=== PATIENT | male | born 1950 | race Two or more races ===

== ENCOUNTER 2018-05-16 08:33 | Outpatient (CLI) | payer OTHER | END 2018-05-16 08:40 | disposition home or self-care (01) | LOC: LAB 08:33 | DX: E11.65 Type 2 diabetes mellitus with hyperglycemia (principal); N40.0 Benign prostatic hyperplasia without lower urinary tract symptoms; E03.8 Other specified hypothyroidism; E55.9 Vitamin D deficiency, unspecified; E78.2 Mixed hyperlipidemia; N39.0 Urinary tract infection, site not specified; J45.998 Other asthma ==

== ENCOUNTER 2018-05-18 07:59 | Outpatient (CLI) | payer OTHER | END 2018-05-18 08:07 | disposition home or self-care (01) | LOC: LAB 07:59 | DX: E11.65 Type 2 diabetes mellitus with hyperglycemia (principal); N40.0 Benign prostatic hyperplasia without lower urinary tract symptoms; E03.8 Other specified hypothyroidism; E55.9 Vitamin D deficiency, unspecified; E78.2 Mixed hyperlipidemia; N39.0 Urinary tract infection, site not specified; J45.998 Other asthma ==

== ENCOUNTER 2018-05-26 13:14 | Outpatient (CLI) | payer OTHER | END 2018-05-26 13:43 | disposition home or self-care (01) | LOC: SONOGRAMA 13:14 | DX: E03.8 Other specified hypothyroidism (principal); E07.89 Other specified disorders of thyroid ==

== ENCOUNTER 2018-06-03 09:45 | Outpatient (CLI) | payer OTHER | END 2018-06-03 10:06 | disposition home or self-care (01) | LOC: NUCLEAR 09:45 | DX: M81.0 Age-related osteoporosis without current pathological fracture (principal) ==

== ENCOUNTER → 2019-03-09 08:19 | Outpatient (CLI) | payer OTHER | END | disposition home or self-care (01) | LOC: LAB 08:19 | DX: E11.21 Type 2 diabetes mellitus with diabetic nephropathy (principal); E03.8 Other specified hypothyroidism; D68.8 Other specified coagulation defects; D64.89 Other specified anemias; N39.0 Urinary tract infection, site not specified; E55.9 Vitamin D deficiency, unspecified; E11.65 Type 2 diabetes mellitus with hyperglycemia; N40.0 Benign prostatic hyperplasia without lower urinary tract symptoms; E78.2 Mixed hyperlipidemia ==

== ENCOUNTER 2019-03-11 10:24 | Outpatient (CLI) | payer OTHER | END 2019-03-11 10:30 | disposition home or self-care (01) | LOC: LAB 10:24 | DX: E11.21 Type 2 diabetes mellitus with diabetic nephropathy (principal) ==

== ENCOUNTER 2019-07-04 08:10 | Outpatient (CLI) | payer OTHER | END 2019-07-04 08:14 | disposition home or self-care (01) | LOC: SONOGRAMA 08:10 | DX: N40.1 Benign prostatic hyperplasia with lower urinary tract symptoms (principal); N40.2 Nodular prostate without lower urinary tract symptoms; R33.8 Other retention of urine ==

== ENCOUNTER → 2021-04-30 08:40 | Outpatient (CLI) | payer OTHER | END | disposition home or self-care (01) | LOC: LAB 08:40 | PROVIDERS: ATTEND Specialist | DX: E78.2 Mixed hyperlipidemia (principal); D64.89 Other specified anemias; N39.0 Urinary tract infection, site not specified; N40.1 Benign prostatic hyperplasia with lower urinary tract symptoms; E11.69 Type 2 diabetes mellitus with other specified complication; E03.8 Other specified hypothyroidism ==

== ENCOUNTER 2021-05-09 14:40 | Outpatient (CLI) | payer OTHER | END 2021-05-09 14:50 | disposition home or self-care (01) | LOC: SONOGRAMA 14:40 | PROVIDERS: ATTEND Specialist | DX: N20.0 Calculus of kidney (principal) ==

== ENCOUNTER 2021-05-12 07:46 | Outpatient (CLI) | payer OTHER | END 2021-05-12 07:47 | disposition home or self-care (01) | LOC: LAB 07:46 | PROVIDERS: ATTEND Specialist | DX: D64.89 Other specified anemias (principal); Z12.11 Encounter for screening for malignant neoplasm of colon; D68.8 Other specified coagulation defects; D50.8 Other iron deficiency anemias ==

== ENCOUNTER 2021-05-19 16:21 | Outpatient (CLI) | payer OTHER | END 2021-05-19 16:28 | disposition home or self-care (01) | LOC: RAD 16:21 | PROVIDERS: ATTEND Specialist | DX: M51.37 Other intervertebral disc degeneration, lumbosacral region (principal); M54.16 Radiculopathy, lumbar region ==

== ENCOUNTER 2021-05-19 17:32 | Outpatient (CLI) | payer OTHER | END 2021-05-19 17:36 | disposition home or self-care (01) | LOC: LAB 17:32 | PROVIDERS: ATTEND Specialist | DX: D64.89 Other specified anemias (principal); D68.8 Other specified coagulation defects; E55.9 Vitamin D deficiency, unspecified; D51.0 Vitamin B12 deficiency anemia due to intrinsic factor deficiency ==

== ENCOUNTER 2021-05-28 13:43 | Outpatient (CLI) | payer OTHER | END 2021-05-28 13:44 | disposition home or self-care (01) | LOC: NUCLEAR 13:43 | PROVIDERS: ATTEND Specialist | DX: M81.0 Age-related osteoporosis without current pathological fracture (principal) ==

== ENCOUNTER 2022-05-12 11:42 | Outpatient (CLI) | payer OTHER | END 2022-05-12 11:43 | disposition home or self-care (01) | LOC: LAB 11:42 | PROVIDERS: ATTEND Specialist | DX: E03.9 Hypothyroidism, unspecified (principal); E11.65 Type 2 diabetes mellitus with hyperglycemia; E11.21 Type 2 diabetes mellitus with diabetic nephropathy ==

== ENCOUNTER 2022-05-25 11:01 | Outpatient (CLI) | payer OTHER | END 2022-05-25 11:18 | disposition home or self-care (01) | LOC: LAB 11:01 | PROVIDERS: ATTEND Specialist | DX: E11.21 Type 2 diabetes mellitus with diabetic nephropathy (principal); N39.9 Disorder of urinary system, unspecified; N40.1 Benign prostatic hyperplasia with lower urinary tract symptoms; D40.0 Neoplasm of uncertain behavior of prostate; E78.2 Mixed hyperlipidemia; D64.9 Anemia, unspecified; E11.65 Type 2 diabetes mellitus with hyperglycemia; K75.81 Nonalcoholic steatohepatitis (NASH); N39.0 Urinary tract infection, site not specified; Z12.11 Encounter for screening for malignant neoplasm of colon; J45.998 Other asthma ==

== ENCOUNTER 2022-06-17 10:52 | Outpatient (CLI) | payer OTHER | END 2022-06-17 11:01 | disposition home or self-care (01) | LOC: LAB 10:52 | PROVIDERS: ATTEND Specialist | DX: B15.0 Hepatitis A with hepatic coma (principal); B19.10 Unspecified viral hepatitis B without hepatic coma; B17.10 Acute hepatitis C without hepatic coma ==

== ENCOUNTER 2023-04-19 10:08 | Outpatient (CLI) | payer OTHER | END 2023-04-19 10:10 | disposition home or self-care (01) | LOC: LAB 10:08 | PROVIDERS: ATTEND Specialist | DX: E03.9 Hypothyroidism, unspecified (principal); N40.1 Benign prostatic hyperplasia with lower urinary tract symptoms; D64.9 Anemia, unspecified; E11.65 Type 2 diabetes mellitus with hyperglycemia; D51.0 Vitamin B12 deficiency anemia due to intrinsic factor deficiency; K75.81 Nonalcoholic steatohepatitis (NASH) ==

== ENCOUNTER 2023-05-14 09:47 | Outpatient (CLI) | payer OTHER | END 2023-05-14 09:51 | disposition home or self-care (01) | LOC: LAB 09:47 | PROVIDERS: ATTEND Specialist | DX: E03.8 Other specified hypothyroidism (principal); Z13.220 Encounter for screening for lipoid disorders; D64.89 Other specified anemias; E11.21 Type 2 diabetes mellitus with diabetic nephropathy; Z12.5 Encounter for screening for malignant neoplasm of prostate; M00.80 Arthritis due to other bacteria, unspecified joint; N25.81 Secondary hyperparathyroidism of renal origin; R19.5 Other fecal abnormalities; E11.69 Type 2 diabetes mellitus with other specified complication; N39.9 Disorder of urinary system, unspecified ==

== ENCOUNTER 2023-05-25 09:56 | Outpatient (CLI) | payer OTHER | END 2023-05-25 09:57 | disposition home or self-care (01) | LOC: LAB 09:56 | PROVIDERS: ATTEND Internal Medicine Hematology & Oncology | DX: D50.8 Other iron deficiency anemias (principal); D59.2 Drug-induced nonautoimmune hemolytic anemia; D89.2 Hypergammaglobulinemia, unspecified; C25.0 Malignant neoplasm of head of pancreas; C18.0 Malignant neoplasm of cecum; D57.3 Sickle-cell trait ==

== ENCOUNTER 2023-07-16 09:29 | Outpatient (CLI) | payer OTHER ==
[2023-07-16 10:16] LABS: HEMATOCRIT 38.4 % (39.0-48.0); HEMOGLOBIN 12.6 g/dL (13-16.00); MEAN CELL VOLUME 95.7 fL (80.0-100.00); MEAN CORPUSCULAR HEMOGLOBIN 31.4 pg (27.00-32.0); MEAN CORPUSCULAR HGB CONC 32.9 g/dl (32.0-36.0); PLATELET COUNT 221 K/uL (150-450); RED BLOOD COUNT 4.01 M/uL (4.00-6.00); RED CELL DISTRIBUTION WIDTH 14.2 % (11.5-14.5)
== END 2023-07-16 09:30 | disposition home or self-care (01) ==
LOC: LAB 09:29
PROVIDERS: ATTEND Internal Medicine Hematology & Oncology
DX: D64.9 Anemia, unspecified (principal)

== ENCOUNTER 2024-04-17 10:35 | Outpatient (CLI) | payer OTHER ==
[2024-04-17 11:41] LABS: URINE APPEARANCE Clear; URINE BILIRRUBIN Negative (NEGATIVE); URINE BLOOD Negative; URINE COLOR Yellow; URINE GLUCOSE Negative (NEGATIVE); URINE LEUKOCYTE Negative; URINE NITRATE Negative; URINE PROTEIN Negative (NEGATIVE); URINE UROBILINOGEN 0.2 E.U./dl
[2024-04-17 11:45] LABS: URINE RBC 7.4 uL (0.0-20.8)
[2024-04-17 11:49] LABS: HEMATOCRIT 37.2 % (39.0-48.0); HEMOGLOBIN 12.9 g/dL (13-16.00); MEAN CELL VOLUME 94.9 fL (80.0-100.00); MEAN CORPUSCULAR HEMOGLOBIN 32.8 pg (27.00-32.0); MEAN CORPUSCULAR HGB CONC 34.6 g/dl (32.0-36.0); PLATELET COUNT 231 K/uL (150-450); RED BLOOD COUNT 3.92 M/uL (4.00-6.00); RED CELL DISTRIBUTION WIDTH 14.5 % (11.5-14.5)
[2024-04-17 11:49] LABS: URINE BACTERIA 1.2 uL (0.0-1933); URINE EPITHELIAL CELLS 0.9 uL (0.0-38.8)
[2024-04-17 12:49] LABS: ALBUMIN 3.9 gm/dL (3.4-5.0); BILIRUBIN TOTAL 0.6 mg/dL (0.3-1.2); BILIRUBIN,CONJUGATED 0.16 mg/dL (0.0-0.2); BILIRUBIN,UNCONJUGATED 0.44 mg/dL (0.0-0.6); CREATININE SERUM 0.91 mg/dL (0.70-1.30); FREE TRIODOTIRONINE 2.63 pg/ml (2.18-3.98); GFR 81.67; GLOBULINA 3.8 G/DL (2.4-3.5); POTASSIUM 4.03 mEq/L (3.5-5.1); PROSTATIC SPECIFIC ANTIGEN 2.72 NG/ML (0.010-4.00); T4 FREE 0.98 NG/ML (0.76-1.46); TOTAL PROTEIN 7.7 gm/dL (6.4-8.2); TSH 1.97 uIU/mL (0.358-3.74)
[2024-04-17 13:15] LABS: FOLIC ACID 17.77 ng/ml (4.78-20)
== END 2024-04-17 10:36 | disposition home or self-care (01) ==
LOC: LAB 10:35
PROVIDERS: ATTEND Specialist
DX: D51.0 Vitamin B12 deficiency anemia due to intrinsic factor deficiency (principal); D64.9 Anemia, unspecified

== ENCOUNTER 2024-04-17 11:51 | Outpatient (CLI) | payer OTHER | END 2024-04-17 11:57 | disposition home or self-care (01) | LOC: SONOGRAMA 11:51 | PROVIDERS: ATTEND Specialist | DX: K75.81 Nonalcoholic steatohepatitis (NASH) (principal) ==

== ENCOUNTER 2024-04-24 13:08 | Outpatient (CLI) | payer OTHER | END 2024-04-24 13:11 | disposition home or self-care (01) | LOC: NUCLEAR 13:08 | PROVIDERS: ATTEND Specialist | DX: M81.0 Age-related osteoporosis without current pathological fracture (principal) ==

== ENCOUNTER 2024-05-12 10:41 | Outpatient (CLI) | payer OTHER ==
[2024-05-12 16:15] LABS: PLATELET ESTIMATE NORMAL (NORMAL)
[2024-05-16 15:07] LABS: hgb a 97.4 % (96.4-98.8); hgb a2 2.6 % (1.8-3.2); hgb f 0 % (0.0-2.0); hgb s 0 % (0.0)
[2024-05-17 17:06] LABS: INTRINSIC FACTOR BLOCKING AB 0.9 AU/mL (0.0-1.1)
[2024-05-18 11:11] LABS: g6pd quant 272 (127-427); rbc 4.04 x10E6/uL (4.14-5.80)
== END 2024-05-12 11:02 | disposition home or self-care (01) ==
LOC: LAB 10:41
PROVIDERS: ATTEND Specialist
DX: D51.0 Vitamin B12 deficiency anemia due to intrinsic factor deficiency (principal); M32.10 Systemic lupus erythematosus, organ or system involvement unspecified; D64.9 Anemia, unspecified

== ENCOUNTER 2024-05-29 13:05 | Outpatient (CLI) | payer OTHER ==
[2024-05-29 13:32] LABS: HEMOGLOBIN 12.5 g/dL (13-16.00); MEAN CELL VOLUME 94.7 fL (80.0-100.00); MEAN CORPUSCULAR HEMOGLOBIN 31.9 pg (27.00-32.0); MEAN CORPUSCULAR HGB CONC 33.7 g/dl (32.0-36.0); PLATELET COUNT 227 K/uL (150-450); RED BLOOD COUNT 3.91 M/uL (4.00-6.00); RED CELL DISTRIBUTION WIDTH 14.9 % (11.5-14.5)
== END 2024-05-29 13:13 | disposition home or self-care (01) ==
LOC: LAB 13:05
PROVIDERS: ATTEND Specialist
DX: E11.65 Type 2 diabetes mellitus with hyperglycemia (principal); E55.9 Vitamin D deficiency, unspecified

== ENCOUNTER 2024-06-20 07:24 | Outpatient (CLI) | payer OTHER | END 2024-06-20 07:32 | disposition home or self-care (01) | LOC: NUCLEAR 07:24 | PROVIDERS: ATTEND Internal Medicine | DX: I20.9 Angina pectoris, unspecified (principal) | CPT/HCPCS: 78452; 93017; A9500 ==

== ENCOUNTER 2025-05-02 10:31 | Outpatient (CLI) | payer OTHER ==
[2025-05-02 11:31] LABS: BASO % 0.4 % (0.1-1.2); EOS # 0.10 (0.04-0.54); EOS % 2.2 % (0.7-7.0); LYMPH # 1.87 (1.18-3.74); LYMPH % 41.1 % (19.3-53.1); MEAN PLATELET VOLUME 8.90 fl (9.4-12.4); MONO # 0.44 (0.24-0.82); MONO % 9.7 % (4.7-12.5); NEUT # 2.11 (1.56-6.13); NEUT % 46.4 % (34.0-71.1); RED CELL DISTRIBUTION WIDTH 14.6 % (11.6-14.4)
[2025-05-02 11:56] LABS: URINE APPEARANCE Clear; URINE BILIRRUBIN Negative (NEGATIVE); URINE BLOOD Negative; URINE COLOR Yellow; URINE GLUCOSE Negative (NEGATIVE); URINE KETONE Negative (NEGATIVE); URINE LEUKOCYTE Negative; URINE NITRATE Negative; URINE PROTEIN Negative (NEGATIVE); URINE UROBILINOGEN 0.2 E.U./dl
[2025-05-02 12:00] LABS: URINE BACTERIA 6.0 uL (0.0-1933); URINE RBC 2.1 uL (0.0-20.8); URINE WBC 1.8 uL (0.0-23.2)
[2025-05-02 12:05] LABS: CREATININE URINE RANDOM 84.2 MG/DL (30-125)
[2025-05-02 12:15] LABS: URINE CAST 0.14 uL (0.0-1.40); URINE EPITHELIAL CELLS 0.1 uL (0.0-38.8)
[2025-05-02 12:26] LABS: ALT/SGPT 30.0 U/L (12-78); AST/SGOT 22.0 U/L (15-37); BILIRUBIN TOTAL 0.46 mg/dL (0.3-1.2); BUN CREA RATIO 28.0 (7.0-25.0); CHOL HDL RATIO 2.0 (0-5.0); CREATININE SERUM 0.92 mg/dL (0.70-1.30); GFR 80.42; GLOBULINA 3.4 G/DL (2.4-3.5); GLUCOSE FASTING 101.0 mg/dL (65-100); HDL 76.0 mg/dl (40-60); LDL 70.0 mg/dl (0-130); OSMOLALITY SERUM 288.0 MOSM/KG (275-295); PROSTATIC SPECIFIC ANTIGEN 3.32 NG/ML (0.010-4.00); T3 UPTAKE 33.0 % (33-40); T4 FREE 0.97 NG/ML (0.76-1.46); TSH 2.96 uIU/mL (0.358-3.74); VLDL 9.0 (0-39)
== END 2025-05-02 10:56 | disposition home or self-care (01) ==
LOC: LAB 10:31
PROVIDERS: ATTEND Specialist
DX: E03.9 Hypothyroidism, unspecified (principal); E11.21 Type 2 diabetes mellitus with diabetic nephropathy; N39.9 Disorder of urinary system, unspecified; E78.2 Mixed hyperlipidemia; E11.65 Type 2 diabetes mellitus with hyperglycemia; D64.9 Anemia, unspecified; N39.0 Urinary tract infection, site not specified

== ENCOUNTER 2025-07-16 09:17 | Outpatient (CLI) | payer OTHER ==
[2025-07-16 10:40] LABS: BASO % 0.3 % (0.1-1.2); EOS # 0.06 (0.04-0.54); EOS % 1.0 % (0.7-7.0); LYMPH # 2.44 (1.18-3.74); LYMPH % 42.1 % (19.3-53.1); MEAN PLATELET VOLUME 8.90 fl (9.4-12.4); MONO # 0.52 (0.24-0.82); MONO % 9.0 % (4.7-12.5); NEUT # 2.74 (1.56-6.13); NEUT % 47.4 % (34.0-71.1); RED CELL DISTRIBUTION WIDTH 14.0 % (11.6-14.4)
[2025-07-16 11:35] LABS: CREATININE URINE RANDOM 45.9 MG/DL (30-125)
[2025-07-16 11:46] LABS: ob NEGATIVE (NEGATIVE)
[2025-07-16 12:51] LABS: FOLIC ACID > 20.00 ng/ml (4.78-20); VITAMIN D3 25 HYDROXY 45.67 ng/ml (30-120)
== END 2025-07-16 09:25 | disposition home or self-care (01) ==
LOC: LAB 09:17
PROVIDERS: ATTEND Specialist
DX: E11.21 Type 2 diabetes mellitus with diabetic nephropathy (principal); Z12.11 Encounter for screening for malignant neoplasm of colon; D64.9 Anemia, unspecified; N25.81 Secondary hyperparathyroidism of renal origin; E55.9 Vitamin D deficiency, unspecified